=== PATIENT | male | born 1965 ===

== ENCOUNTER 2017-04-04 01:41 | Emergency (ER) | payer SELFPAY ==
[2017-04-04 01:58] VITALS: PULSE 57
--- NOTE | 2017-04-04 02:11 | C.PDOC ---
History Of Present Illness patient with 30 -40 lbs weight loss since january. Smoke 1-2 packs per day. He also had some dizziness today. No slurred speech, no weakness. After eating, he felt better Time Seen by Provider: 04/04/17 02:10 Chief Complaint (Nursing): Medical Clearance History Per: Patient History/Exam Limitations: no limitations Onset/Duration Of Symptoms: Days Current Symptoms Are (Timing): Still Present Severity: Moderate Pain Scale Rating Of: 4 Recent travel outside of the [place]: No Past Medical History Reviewed: Historical Data, Nursing Documentation, Vital Signs Vital Signs: Last Vital Signs Temp 97.4 F L 04/04/17 01:55 Pulse 57 L 04/04/17 02:26 Resp 12 04/04/17 02:26 BP 143/83 04/04/17 02:26 Pulse Ox 99 04/04/17 04:54 - Medical History PMH: Asthma Family History: States: No Known Family Hx - Social History Hx Alcohol Use: No Hx Substance Use: No Review Of Systems Constitutional: Negative for: Fever, Chills Eyes: Negative for: Redness ENT: Negative for: Throat Pain Cardiovascular: Negative for: Chest Pain, Palpitations Respiratory: Negative for: Shortness of Breath Gastrointestinal: Negative for: Nausea, Vomiting, Abdominal Pain Genitourinary: Negative for: Dysuria Musculoskeletal: Negative for: Back Pain Skin: Negative for: Rash, Lesions, Jaundice, Bruising Neurological: Positive for: Dizziness. Negative for: Weakness Psych: Negative for: Anxiety Physical Exam - Physical Exam Appears: Non-toxic, No Acute Distress Skin: Warm, Dry Head: Normacephalic Eye(s): bilateral: Normal Inspection Oral Mucosa: Moist Neck: Supple Chest: Symmetrical Cardiovascular: Rhythm Regular Respiratory: No Rales, Rhonchi (at bases), No Wheezing Gastrointestinal/Abdominal: Soft, No Tenderness, No Distention Back: No Normal Inspection Extremity: Normal ROM Extremity: Bilateral: Atraumatic, Normal Color And Temperature, Normal ROM Neurological/Psych: Oriented x3, Normal Speech, Normal Cognition Gait: Steady ED Course And Treatment - Laboratory Results Result Diagrams: 04/04/17 02:27 04/04/17 02:27 O2 Sat by Pulse Oximetry: 99 Pulse Ox Interpretation: Normal - Radiology CXR: Interpreted by Me, Viewed By Me CXR Interpretation: No: Infiltrates, Fracture, Pnemothorax - CT Scan/US Chest CT w/o contrast Other Rad Studies (CT/US): Read By Radiologist, Radiology Report Reviewed CT/US Interpretation: IMPRESSION: Unremarkable CT examination of the chest, as detailed above. Progress Note: blood work, cxr Reevaluation Time: 05:07 Reassessment Condition: Improved Medical Decision Making Medical Decision Making: Upon provider reevaluation patient is feeling better, is medically stable, and requires no further treatment in the ED at this time. Patient will be discharged home . Counseling was provided and all questions were answered regarding diagnosis and need for follow up with the referred clinic. There is agreement to discharge plan. Return if symptoms persist or worsen. Disposition Counseled Patient/Family Regarding: Studies Performed, Diagnosis, Need For Followup - Disposition Disposition: HOME/ ROUTINE Disposition Time: 02:11 Condition: FAIR Instructions: Dizziness (ED) - Clinical Impression Clinical Impression: Medical assessment
[2017-04-04] MEDS ORDERED: Sodium Chloride 0.9% 1,000 ML IV ONE (02:13)
[2017-04-04 02:33] LABS: BASO # 0.1 K/uL (0.0-0.2); EOS # 0.3 K/uL (0.0-0.7); EOS % 3.4 % (0.0-4.0); HEMATOCRIT 39.1 % (35.0-51.0); LYMPH # 3.8 K/uL (1.0-4.3); LYMPH % 46.6 % (20.0-40.0); MEAN CELL VOLUME 93.8 fL (80.0-94.0); MEAN CORPUSCULAR HEMOGLOBIN 31.6 pg (27.0-31.0); MEAN CORPUSCULAR HGB CONC 33.7 g/dL (33.0-37.0); MEAN PLATELET VOLUME 8.5 fL (7.2-11.7); MONO # 0.4 K/uL (0.0-0.8); RED CELL DISTRIBUTION WIDTH 12.3 % (11.5-14.5); WHITE BLOOD COUNT 8.2 K/uL (4.8-10.8)
[2017-04-04 02:39] LABS: CHLORIDE 105 mmol/L (98-107); SODIUM 142 mmol/L (132-148)
[2017-04-04 02:41] LABS: BILIRUBIN,TOTAL 0.6 mg/dL (0.2-1.3); CARBON DIOXIDE 28 mmol/L (22-30); GFR AFRICAN-AMERICAN > 60
[2017-04-04] MEDS ORDERED: Sodium Chloride 0.9% 1,000 ML ONE (02:41)
[2017-04-04 02:42] LABS: ALB/GLOB RATIO 1.7 (1.0-2.1); ALKALINE PHOSPHATASE 55 U/L (38-126); ALT/SGPT 26 U/L (21-72); AST/SGOT 23 U/L (17-59); BLOOD UREA NITROGEN 17 mg/dL (9-20); CALCIUM 8.9 mg/dl (8.6-10.4); GLUCOSE,RANDOM 106 mg/dL (75-110); TOTAL PROTEIN 6.4 g/dL (6.3-8.3)
[2017-04-04 02:44] LABS: INR 1.1
[2017-04-04 04:11] LABS: RBC URINE 1 /hpf (0-3); URINE BACTERIA RARE (<OCC); URINE BILIRUBIN NEGATIVE (NEGATIVE); URINE BLOOD NEGATIVE (NEGATIVE); URINE COLOR Yellow (YELLOW); URINE GLUCOSE (UA) NORMAL (Normal); URINE KETONE TRACE mg/dL (NEGATIVE); URINE LEUKOCYTE ESTERASE NEG Leu/uL (Negative); URINE PROTEIN NEGATIVE (NEGATIVE); URINE UROBILINOGEN NORMAL mg/dL (0.2-1.0); WBC URINE 1 /hpf (0-5)
[2017-04-04 05:20] VITALS: BP 119/64; RESP 16; TEMP 97.3; O2SAT 98
--- NOTE | 2017-04-04 09:25 | RAD ---
HISTORY: SOB COMPARISON: No prior. TECHNIQUE: Chest PA and lateral FINDINGS: LUNGS: No active pulmonary disease. PLEURA: No significant pleural effusion identified. No pneumothorax apparent. CARDIOVASCULAR: Normal. OSSEOUS STRUCTURES: No significant abnormalities. VISUALIZED UPPER ABDOMEN: Normal. OTHER FINDINGS: None. IMPRESSION: No active disease.
--- NOTE | 2017-04-04 10:32 | CT ---
CT chest without IV contrast Indication: Cough, weight loss Technique: Contiguous axial images were obtained through the chest without intravenous contrast enhancement. Sagittal and coronal reconstructions were generated and reviewed. This CT exam was performed using 1 or more of the falling dose reduction techniques: Automated exposure control, adjustment of the MAA and/or kV according to patient size, and/or use of iterative reconstruction technique. Radiation dose (DLP): 306.23 MGy-cm. Comparison: Chest x-ray performed 04/04/17 Findings: Visualized portions of the inferior thyroid gland appear unremarkable. The mediastinal and hilar vascular structures appear within normal limits. The heart appears within normal limits of size. Nonspecific hazy soft tissue density in the anterior mediastinum may reflect residual thymic tissue. Coronary artery calcifications. Scattered sub cm mediastinal lymph nodes, nonspecific. Minimal tree-in-bud like opacity in the right middle lobe may reflect infection. No pleural effusion. No pneumothorax. No suspicious pulmonary nodules measuring greater than 5 mm. Limited visualization of the noncontrast upper abdomen appears grossly unremarkable. No acute osseous abnormality is detected. Impression: Minimal tree-in-bud like opacities in the right middle lobe may reflect infection. Recommend clinical correlation and follow-up as indicated. Nonspecific hazy soft tissue density in the anterior mediastinum may reflect residual thymic tissue. Scattered sub cm mediastinal lymph nodes, nonspecific. Coronary artery calcifications. Preliminary impression was provided by virtual radiologic. Study is been marked for PA review.
== END 2017-04-04 05:19 | disposition home or self-care (01) ==
LOC: C.ER 01:41
DX: Z00.00 Encounter for general adult medical examination without abnormal findings (principal)
CPT/HCPCS: 71020; 71250; 80053; 81001; 85025; 85610; 85730; 96360; 99283; J7040